=== PATIENT | female | born 1970 | race Caucasian/White ===

== ENCOUNTER 2018-03-27 18:47 | Emergency (ER) | payer OTHER ==
[2018-03-27 19:04] VITALS: BP 121/82; PULSE 81; RESP 16; TEMP 98; O2SAT 100
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
--- NOTE | 2018-03-28 11:18 | RAD ---
HISTORY: CHEST PAIN COMPARISON: No prior. TECHNIQUE: Chest PA and lateral FINDINGS: LUNGS: No active pulmonary disease. PLEURA: No significant pleural effusion identified. No pneumothorax apparent. CARDIOVASCULAR: Normal. OSSEOUS STRUCTURES: No significant abnormalities. VISUALIZED UPPER ABDOMEN: Normal. OTHER FINDINGS: None. IMPRESSION: No focal airspace opacity. Please note that chest radiographs have low sensitivity for small pulmonary nodules. If indicated, chest CT should be obtained.
== END 2018-03-27 21:44 | disposition home or self-care (01) ==
LOC: H.ER 18:47
DX: S19.9XXA Unspecified injury of neck, initial encounter (principal); V43.62XA Car passenger injured in collision with other type car in traffic accident, initial encounter; Y92.410 Unspecified street and highway as the place of occurrence of the external cause